=== PATIENT | female | born 1995 | race Caucasian/White ===

== ENCOUNTER 2017-04-20 13:10 | Outpatient (CLI) | payer OTHER ==
[~2017-04-20 13:10] MED LIST: LEVSIN0.125 MG PO; ZANTAC300 MG PO; ZOFRAN4 MG PO
== END 2017-04-20 13:18 | disposition home or self-care (01) ==
LOC: RAD 13:10
DX: M25.561 Pain in right knee (principal)

== ENCOUNTER 2022-07-14 15:29 | Outpatient (CLI) | payer OTHER | END 2022-07-14 15:37 | disposition home or self-care (01) | LOC: RAD 15:29 | PROVIDERS: ATTEND Orthopaedic Surgery | DX: M25.562 Pain in left knee (principal); M25.571 Pain in right ankle and joints of right foot ==

== ENCOUNTER → 2024-06-08 | Emergency (ER) | payer OTHER ==
[~2024-06-08] VITALS: Ht 152.4 cm; Wt 59.4 kg
[~2024-06-08] MED LIST changes: +0.9 % SODIUM CHLORIDE 1,000 ML IV STA; +CIPRO500 MG PO; +CIPROFLOXACIN IN 5 % DEXTROSE 400 MG/200 ML PIGGYBAG IV ONE; +CIPROFLOXACIN IN 5 % DEXTROSE 400 MG/200 ML PIGGYBAG IV STA; +FAMOTIDINE/PF 20 MG/2 ML VIAL IV PUSH STA; +FAMOTIDINE/PF 20 MG/2 ML VIAL ONE; +LACTOBACILLUS ACIDOPHILUS 1 CAP CAP PO ONE; +LACTOBACILLUS ACIDOPHILUS 1 CAP CAP PO STA; +METRONIDAZOLE500 MG PO; +ONDANSETRON HCL 2 MG/ML VIAL IV STA; +ONDANSETRON HCL 2 MG/ML VIAL ONE; +PROBIOTIC1 EAC2 PO; +PROTONIX40 MG PO
[2024-06-09] LABS: HEMATOCRIT 35.5 % (36.0-45.00); HEMOGLOBIN 11.8 g/dL (12.0-15.00); MEAN CELL VOLUME 85.8 fL (80.00-100.00); MEAN CORPUSCULAR HEMOGLOBIN 28.4 pg (27.00-32.0); MEAN CORPUSCULAR HGB CONC 33.1 g/dl (32.0-36.0); PLATELET COUNT 176 K/uL (150-450); RED BLOOD COUNT 4.14 M/uL (4.00-6.00); RED CELL DISTRIBUTION WIDTH 13.4 % (11.5-14.5)
[2024-06-09 00:12] LABS: CALCIUM 8.9 mg/dL (8.5-10.1); CREATININE SERUM 0.6 mg/dL (0.55-1.02); GFR 116.6; POTASSIUM 3.35 mEq/L (3.5-5.1)
[2024-06-09 01:36] LABS: PH,URINE 5.5 (5.0-8.0); URINE APPEARANCE Clear; URINE BILIRRUBIN Negative (NEGATIVE); URINE BLOOD Moderate; URINE COLOR Yellow; URINE GLUCOSE Negative (NEGATIVE); URINE KETONE 15 (NEGATIVE); URINE LEUKOCYTE Negative; URINE NITRATE Negative; URINE PROTEIN Negative (NEGATIVE); URINE UROBILINOGEN 0.2 E.U./dl
[2024-06-09 01:40] LABS: URINE BACTERIA 13.4 uL (0.0-1933); URINE EPITHELIAL CELLS 19.6 uL (0.0-38.8); URINE RBC 9.4 uL (0.0-20.8); URINE WBC 5.2 uL (0.0-23.2)
== END | disposition home or self-care (01) ==
LOC: ER 22:17
PROVIDERS: Emergency Medicine
DX: A04.9 Bacterial intestinal infection, unspecified (principal)

== ENCOUNTER 2024-10-31 04:46 | Emergency (ER) | payer OTHER ==
[~2024-10-31] VITALS: Ht 152.4 cm; Wt 57.6 kg
[~2024-10-31 04:46] MED LIST changes: -0.9 % SODIUM CHLORIDE 1,000 ML IV STA; -CIPROFLOXACIN IN 5 % DEXTROSE 400 MG/200 ML PIGGYBAG IV ONE; -CIPROFLOXACIN IN 5 % DEXTROSE 400 MG/200 ML PIGGYBAG IV STA; -FAMOTIDINE/PF 20 MG/2 ML VIAL IV PUSH STA; -FAMOTIDINE/PF 20 MG/2 ML VIAL ONE; -LACTOBACILLUS ACIDOPHILUS 1 CAP CAP PO ONE; -LACTOBACILLUS ACIDOPHILUS 1 CAP CAP PO STA; -ONDANSETRON HCL 2 MG/ML VIAL IV STA; -ONDANSETRON HCL 2 MG/ML VIAL ONE
== END 2024-10-31 08:19 | disposition home or self-care (01) ==
LOC: ER 04:46
DX: G50.0 Trigeminal neuralgia (principal)

== ENCOUNTER 2024-11-02 14:17 | Emergency (ER) | payer OTHER ==
[~2024-11-02] VITALS: Ht 152.4 cm; Wt 57.6 kg
[2024-11-02] MEDS ORDERED: GABAPENTIN300 M2 PO (15:03)
[2024-11-02] MEDS ORDERED: KETOROLAC TROMETHAMINE 60 MG VIAL IM ONE ×2 (16:30→16:32)
== END 2024-11-02 16:57 | disposition home or self-care (01) ==
LOC: ER 14:17
DX: H10.89 Other conjunctivitis (principal)
CPT/HCPCS: 96372; 99282; J1885